=== PATIENT | female | born 1945 | race Caucasian/White ===

== ENCOUNTER 2016-12-03 19:57 | Emergency (ER) | payer MEDICARE, OTHER ==
[2016-12-03 20:13] VITALS: TEMP 98.4; O2SAT 100
[2016-12-03] MEDS ORDERED: LIDOCAINE VIS-MYLANTA 30 ML UD PO ONE (20:13)
[2016-12-03] MEDS ORDERED: FAMOTIDINE 20 MG TAB PO ONE (20:13)
--- NOTE | 2016-12-03 20:46 | RAD ---
EXAM DESCRIPTION: Chest,2 Views CLINICAL HISTORY: 70 years Female substernal epigastric pain COMPARISON: None. FINDINGS: The cardiomediastinal silhouette appears unremarkable. No consolidating infiltrates. No pneumothorax. Lungs appear hyperinflated suggesting COPD pre- Focal area of scarring or atelectasis in the left upper lobe. Some blunting of the left posterior sulcus. Question scarring versus fluid. IMPRESSION: Pulmonary hyperinflation suggesting COPD Some blunting of the left posterior sulcus. Question small amount of fluid versus scarring Electronically signed by: Jasmin Izquierdo 12/03/2016 8:45 PM CDT
--- NOTE | 2016-12-03 20:47 | RAD ---
EXAM DESCRIPTION: Abdomen Flat Upright CLINICAL HISTORY: 70 years Female substernal epigastric pain COMPARISON: None. TECHNIQUE: Single view of the abdomen. FINDINGS: The upper abdomen was not entirely included on the film. No dilated loops of bowel to suggest obstruction. IMPRESSION: No acute plain film abnormality is identified. Electronically signed by: Jasmin Izquierdo 12/03/2016 8:46 PM CDT
--- NOTE | 2016-12-03 21:41 | ED.PDOC ---
History of Present Illness - General Chief Complaint: Blood Pressure Problem Stated Complaint: epigastric burning, HTN Time Seen by Provider: 12/03/16 19:59 Source: patient, family Exam Limitations: no limitations - History of Present Illness Initial Comments: the patient is a 70-year-old female presenting to the emergency room secondary to an epigastric discomfort. The patient has had this discomfort for the last 2 nights. It has occurred after she is eating supper. The patient does have a history of breast cancer. She did not have any chest pain. No shortness of breath. No palpitations or syncope. No near syncope. No headache. The patient has had significant social stresses with her 's health. She is not taking medications for her stomach. She has had about a 20 pound weight loss over the last year. She did not throw up. No diarrhea. No blood in the stools. No fever. The patient is not having anyepigastric pain about time she arrives here. She does admit to significant anxiety. Timing/Duration: 1/2 hour Severity: moderate Improving Factors: nothing Worsening Factors: nothing Associated Symptoms: denies symptoms Allergies/Adverse Reactions: Allergies NO KNOWN ALLERGY Allergy (Verified 12/03/16 20:14) Home Medications: Ambulatory Orders Famotidine 20 mg PO DAILY #30 tab 12/03/16 Sucralfate Tab [Carafate Tab] 1 gm PO QID #120 tab 12/03/16 Review of Systems - Review of Systems Constitutional: States: no symptoms reported EENTM: States: no symptoms reported Respiratory: States: no symptoms reported Cardiology: States: no symptoms reported Gastrointestinal/Abdominal: States: abdominal pain Genitourinary: States: no symptoms reported Musculoskeletal: States: no symptoms reported Skin: States: no symptoms reported Neurological: States: no symptoms reported Endocrine: States: no symptoms reported All other Systems: No Change from Baseline Past Medical History (General) - Patient Medical History Hx Diabetes: No Hx Cancer: Yes - left breast Hx MRSA: No Surgical History: appendectomy, Hysterectomy - Vaccination History Hx Influenza Vaccination: Yes - Triage Comment ED Triage Comment: states feeling better at present Family Medical History - Family History Father Family History: Unknown Physical Exam - Physical Exam General Appearance: Alert, Anxious, No apparent distress Eye Exam: bilateral normal Ears, Nose, Throat: hearing grossly normal, normal ENT inspection, normal pharynx Neck: non-tender, full range of motion, supple, normal inspection Respiratory: chest non-tender, lungs clear, normal breath sounds, no respiratory distress, no accessory muscle use Cardiovascular/Chest: normal peripheral pulses, regular rate, rhythm, no edema Peripheral Pulses: radial,right: 2+, radial,left: 2+, dorsalis pedis,right: 2+, dorsalis pedis,left: 2+ Gastrointestinal/Abdominal: soft, other - mild epigastric discomfort palpation. No pulsatile palpable masses. No rebound or peritoneal signs. 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 Skin Exam: normal color Comments: Vital Signs - 24 hr 12/03/16 12/03/16 12/03/16 20:08 20:42 21:19 Temperature 98.4 F Pulse Rate [ 60 56 L 58 L right] Respiratory 18 18 16 Rate Blood Pressure 158/81 161/63 145/76 [Left Arm] O2 Sat by Pulse 100 Oximetry Progress - Progress Progress: 12/03/16 21:43 the patient is a 70-year-old female presenting due to epigastric pain. This is most likely related to gastritis probably worsened by anxiety. The patient is going to be placed on Pepcid and Carafate for the next month. I do want her to follow up with her primary care doctor, Dr. Hill. She has had weight loss over the last year and this needs to be monitored. Additionally she may yet need something for mild anxiety in the long run. ER warnings were given for any significant worsening. If she has further epigastric discomfort she should try a trial of liquid Maalox. - Results/Orders Results/Orders: 12/03/16 20:12 Telemetry .CONTINUOUS normal sinus rhythm Two-view abdomen shows no evidence of any free air, obstruction or ileus. No acute pathology. Two-view chest x-ray shows chronic changes consistent with COPD. No evidence of pneumonia. No cardiomediastinal widening. 12/03/16 20:15 EKG STAT mild sinus bradycardia. Very mild right axis deviation with a mild right bundle branch block. No acute ST segment changes consistent with ischemia. Normal QT interval. Laboratory Results - last 24 hr 12/03/16 12/03/16 12/03/16 20:20 20:20 20:20 WBC 4.2 L RBC 4.53 Hgb 14.0 Hct 40.7 MCV 89.8 MCH 30.8 MCHC 34.3 RDW 13.4 Plt Count 194 MPV 7.6 Absolute Neuts (auto) 2.40 Absolute Lymphs (auto) 1.10 Absolute Monos (auto) 0.50 Absolute Eos (auto) 0.10 Absolute Basos (auto) 0.00 Neutrophils % 57.8 Lymphocytes % 27.3 Monocytes % 11.1 H Eosinophils % 3.2 Basophils % 0.6 PT 10.7 INR 0.950 PTT (SP) 30.0 D-Dimer, Quantitative < 230 Sodium 139 Potassium 3.8 Chloride 106 Carbon Dioxide 30 Anion Gap 6.8 L BUN 16 Creatinine 0.80 BUN/Creatinine Ratio 20.0 Random Glucose 116 H Serum Osmolality 279.7 Calcium 8.9 Magnesium 1.9 Total Bilirubin 0.6 AST 24 ALT 21 Alkaline Phosphatase 48 Creatine Kinase 119 CK-MB (CK-2) 3.8 CK-MB (CK-2) % Not Reportable Troponin I < 0.02 B-Natriuretic Peptide 42.1 Serum Total Protein 6.3 L Albumin 4.0 Globulin 2.3 Albumin/Globulin Ratio 1.7 Amylase 69 Lipase 46 TSH 2.23 Urine Color Urine Appearance Urine pH Ur Specific [place] Urine Protein Urine Glucose (UA) Urine Ketones Urine Blood Urine Nitrite Urine Bilirubin Urine Urobilinogen Ur Leukocyte Esterase Urine RBC Urine WBC Ur Epithelial Cells Urine Bacteria 12/03/16 21:08 WBC RBC Hgb Hct MCV MCH MCHC RDW Plt Count MPV Absolute Neuts (auto) Absolute Lymphs (auto) Absolute Monos (auto) Absolute Eos (auto) Absolute Basos (auto) Neutrophils % Lymphocytes % Monocytes % Eosinophils % Basophils % PT INR PTT (SP) D-Dimer, Quantitative Sodium Potassium Chloride Carbon Dioxide Anion Gap BUN Creatinine BUN/Creatinine Ratio Random Glucose Serum Osmolality Calcium Magnesium Total Bilirubin AST ALT Alkaline Phosphatase Creatine Kinase CK-MB (CK-2) CK-MB (CK-2) % Troponin I B-Natriuretic Peptide Serum Total Protein Albumin Globulin Albumin/Globulin Ratio Amylase Lipase TSH Urine Color Yellow Urine Appearance Clear Urine pH 5.5 Ur Specific [place] 1.025 Urine Protein Trace Urine Glucose (UA) Negative Urine Ketones Negative Urine Blood Trace-lysed H Urine Nitrite Negative Urine Bilirubin Negative Urine Urobilinogen 0.2 Ur Leukocyte Esterase Trace H Urine RBC 0-1 Urine WBC 1-3 Ur Epithelial Cells 0-1 Urine Bacteria Rare Departure - Departure Clinical Impression: Epigastric pain Disposition: Discharge to Home or Self Care Condition: Fair Departure Forms: ED Discharge - Pt. Copy, Patient Portal Self Enrollment Instructions: DI for Epigastric Pain Diet: bland diet Activity: increase activity as tolerated Referrals: Andrew Hill MD [Primary Care Provider] - 1-2 Weeks Prescriptions: Famotidine 20 mg PO DAILY #30 tab Sucralfate Tab [Carafate Tab] 1 gm PO QID #120 tab Home Medications: Ambulatory Orders Famotidine 20 mg PO DAILY #30 tab 12/03/16 Sucralfate Tab [Carafate Tab] 1 gm PO QID #120 tab 12/03/16 Additional Instructions: the patient is a 70-year-old female presenting due to epigastric pain. This is most likely related to gastritis probably worsened by anxiety. The patient is going to be placed on Pepcid and Carafate for the next month. I do want her to follow up with her primary care doctor, Dr. Hill. She has had weight loss over the last year and this needs to be monitored. Additionally she may yet need something for mild anxiety in the long run. ER warnings were given for any significant worsening. If she has further epigastric discomfort she should try a trial of liquid Maalox.
[2016-12-03 21:51] VITALS: BP 142/73
== END 2016-12-03 21:52 | disposition home or self-care (01) ==
LOC: ER 19:57
DX: R10.13 Epigastric pain (principal); F41.9 Anxiety disorder, unspecified; Z85.3 Personal history of malignant neoplasm of breast

== ENCOUNTER → 2016-12-13 | Outpatient (CLI) | payer MEDICARE, OTHER ==
--- NOTE | 2016-12-14 10:43 | CT ---
EXAM DESCRIPTION: Abdoment/Pelvis w/o Contrast CLINICAL HISTORY: GERD COMPARISON: February 27, 2006 TECHNIQUE: CT of the abdomen and Pelvis was performed without IV contrast. This exam was performed according to our departmental dose-optimization program, which includes automated exposure control, adjustment of the mA and/or kV according to patient size and/or use of iterative reconstruction technique. FINDINGS: The lung bases are unremarkable. No hiatal hernia or gastric wall thickening. The gallbladder is not seen and is either collapsed or surgically absent. No calcified gallstone is identified. The liver, spleen, pancreas, adrenals and kidneys are unremarkable for noncontrast technique. No dilated small bowel loops. Moderate amount of colonic stool and gas without pericolonic inflammation. No bladder wall thickening. The uterus and right ovary are not identified, correlate with surgical history. There is a 6.8 cm left adnexal cyst which may be of left ovarian origin. This is new or increased in size from February, when a 3.5 cm left adnexal cyst was noted. No concerning bone lesion. IMPRESSION: No hiatal hernia or other abnormality to explain provided history of gastroesophageal reflux disease. 6.8 cm left adnexal cyst, suboptimally evaluated due to lack of IV contrast on this exam. This is new or increased in size from February, as detailed above. Nonemergent but prompt ultrasound is recommended for further evaluation. Electronically signed by: Trav Ansari MD 12/14/2016 10:41 AM CDT
== END ==
LOC: CT 09:46
PROVIDERS: ATTEND Family Medicine
DX: K21.9 Gastro-esophageal reflux disease without esophagitis (principal)

== ENCOUNTER → 2016-12-22 | Outpatient (CLI) | payer MEDICARE, OTHER ==
--- NOTE | 2016-12-24 19:58 | US ---
EXAM DESCRIPTION: Pelvic,Non-OB CLINICAL HISTORY: ABN CT. Hysterectomy. Left adnexal cystic mass and pelvic mesentery stranding. COMPARISON: CT scan abdomen and pelvis 12/13/2016. TECHNIQUE: Transcutaneous scanning through the urine filled bladder. Endovaginal scanning. Two-dimensional and Doppler modes. FINDINGS: The uterus is surgically absent. Cul-de-sac contains no fluid. Right ovary measures 2.1 x 0.8 x 0.9 cm. Decreased Vascularity Doppler. No follicles or cysts. No adnexal mass or free fluid. Left ovary 5.8 x 7.1 x 5.1 x 4.5 cm. Decreased Vascularity Doppler. Mostly cystic with wall thickening. Posterior acoustic enhancement. No adnexal mass or free fluid. IMPRESSION: Large mostly cystic structure in the left adnexa presumed to be the left ovary.. Nonvascular. Wall thickening with posterior acoustic enhancement. Probably benign hemorrhagic cyst. Consider MRI pelvis with gadolinium IV contrast and surgical evaluation. Please see [facility] Best Practice guidelines for follow-up of benign ovarian cysts.* Small right ovary. Recommendations for f/u of ovarian hemorrhagic cysts and corpus luteum cysts (1): Corpus luteum cyst, w/o : <=3 cm No follow-up imaging recommended >3 cm US f/u 6-12 wks. If resolved or smaller, no further f/u. If stable/larger, continue f/u with US or consider MR w/IVC Hemorrhagic cyst, Pre-menopause: <=5 cm No follow-up imaging recommended >5 cm US f/u 6-12 weeks. If not resolved, US f/u annually. Hemorrhagic cyst, Early Post-menopause (1-5 years from last menstrual period): Any size: US f/u 6-12 weeks. If not resolved, US f/u annually. Hemorrhagic cyst, Late Post-menopause (>5 years from last menstrual period): Any size: Consider surgical evaluation (1) Recommendations based upon the 2010 SRU Consensus Conference Statement on the Management of Asymptomatic Ovarian and Other Adnexal Cysts Imaged at US: Radiology. 2009;256(3):943-54 Electronically signed by: Jason Gomez MD 12/24/2016 7:57 PM DOCTOR OF MEDICINE Workstation: [id number]
== END | disposition home or self-care (01) ==
LOC: US 09:46
PROVIDERS: ATTEND Family Medicine
DX: R93.8 Abnormal findings on diagnostic imaging of other specified body structures (principal)

== ENCOUNTER 2016-12-28 18:26 | Observation (INO) | payer MEDICARE, OTHER ==
--- NOTE | 2016-12-28 18:50 | ED.PDOC ---
History of Present Illness - General Chief Complaint: Chest Pain/OK Stated Complaint: CHEST PAIN Time Seen by Provider: 12/28/16 18:49 Source: patient Exam Limitations: no limitations - History of Present Illness Initial Comments: Roz Valdes 71 y/o female stated that she had chest tightness across her chest while doing yard work 1-2 hours ago no radiation no diaphoresis no N/V no SOB.stated went away after 30 minutes after going back inside her house but symptoms recurred so she finally decided to come to er.Had recent EGD for Ge reflux sx and has appointment with cardio the end of this month,Took one tablet regular aspirin before coming home. Timing/Duration: 1-3 hours Severity/Quality: pressure Location: central Chest Pain Radiation: no radiation Activities at Onset: activity Prior Chest Pain/Cardiac Workup: other - has scheduled appt. with cardio Worsening Factors: nothing Nitro Today/Relief: 0.4 mg x 1, provided by ED Aspirin Treatment Today: provided at home Associated Symptoms: denies symptoms Allergies/Adverse Reactions: Allergies NO KNOWN ALLERGY Allergy (Verified 12/03/16 20:14) Home Medications: Ambulatory Orders Famotidine 20 mg PO DAILY #30 tab 12/03/16 Sucralfate Tab [Carafate Tab] 1 gm PO QID #120 tab 12/03/16 Review of Systems - Review of Systems Constitutional: States: no symptoms reported EENTM: States: no symptoms reported Respiratory: States: see HPI Cardiology: States: see HPI Gastrointestinal/Abdominal: States: see HPI Genitourinary: States: no symptoms reported Skin: States: no symptoms reported Neurological: States: no symptoms reported Past Medical History (General) - Patient Medical History Hx Seizures: No Hx Stroke: No Hx Asthma: No Hx Cardiac Disorders: No Hx Thyroid Disease: No Hx Diabetes: No Hx Gastroesophageal Reflux: Yes Hx Cancer: Yes - left breast Hx MRSA: No Surgical History: appendectomy, other - lumpectomy left breast,hysterectomy - Vaccination History Hx Influenza Vaccination: Yes - Social History Hx Physical Abuse: No Hx Emotional Abuse: No Hx Suspected Abuse: No - Activities of Daily Living Grooming Ability: Independent Eating (Feeding) Ability: Independent Toileting Ability: Independent Family Medical History - Family History Father Family History: Unknown Hx Family Stroke: Yes - dad Hx Family Diabetes: Yes - mom Physical Exam - Physical Exam General Appearance: Alert, Anxious, No apparent distress Eyes, Ears, Nose, Throat Exam: PERRL/EOMI, normal ENT inspection Neck: non-tender, full range of motion, supple, normal inspection Respiratory: chest non-tender, lungs clear, normal breath sounds Cardiovascular/Chest: normal peripheral pulses, regular rate, rhythm, no murmur Peripheral Pulses: radial,right: 2+, radial,left: 2+ Gastrointestinal/Abdominal: normal bowel sounds, non tender, soft, no organomegaly Extremity: no pedal edema, no calf tenderness Neurologic: alert, normal mood/affect, oriented x 3 Skin Exam: normal color, warm/dry Lymphatic: no adenopathy Progress - Progress Progress: 12/28/16 19:44 Last Vital Signs Temp 97.4 F L 12/28/16 18:30 Pulse 68 12/28/16 18:30 Resp 16 12/28/16 18:30 BP 172/68 12/28/16 18:30 Pulse Ox 100 12/28/16 18:30 12/28/16 22:38 Last Vital Signs Temp 97.4 F L 12/28/16 18:30 Pulse 53 L 12/28/16 22:15 Resp 16 12/28/16 22:15 BP 135/59 12/28/16 22:15 Pulse Ox 97 12/28/16 22:15 - Results/Orders Results/Orders: Laboratory Tests 12/28/16 12/28/16 12/28/16 18:25 18:25 19:20 WBC 5.9 RBC 4.78 Hgb 14.6 Hct 43.2 MCV 90.4 MCH 30.5 MCHC 33.7 RDW 13.2 Plt Count 213 MPV 8.2 Absolute Neuts (auto) 4.30 Absolute Lymphs (auto) 1.10 Absolute Monos (auto) 0.40 Absolute Eos (auto) 0.10 Absolute Basos (auto) 0.00 Neutrophils % 72.5 Lymphocytes % 18.1 L Monocytes % 7.5 Eosinophils % 1.1 Basophils % 0.8 PT 10.7 INR 0.950 PTT (SP) 29.3 D-Dimer, Quantitative < 200 Sodium 139 Potassium 3.4 L Chloride 103 Carbon Dioxide 29 Anion Gap 10.4 L BUN 12 Creatinine 0.73 BUN/Creatinine Ratio 16.4 Random Glucose 91 Serum Osmolality 276.9 Calcium 9.3 Magnesium 1.9 Total Bilirubin 0.7 Direct Bilirubin 0.1 Indirect Bilirubin 0.6 AST 27 ALT 19 Alkaline Phosphatase 53 Creatine Kinase 124 CK-MB (CK-2) 4.0 CK-MB (CK-2) % Not Reportable Troponin I < 0.02 B-Natriuretic Peptide 46.0 Serum Total Protein 6.9 Albumin 4.4 Urine Color Yellow Urine Appearance Clear Urine pH 7.0 Ur Specific [place] 1.015 Urine Protein Negative Urine Glucose (UA) Negative Urine Ketones Negative Urine Blood Negative Urine Nitrite Negative Urine Bilirubin Negative Urine Urobilinogen 0.2 Ur Leukocyte Esterase Trace H Urine RBC 0 Urine WBC 1-3 Ur Epithelial Cells 0-1 Urine Bacteria Rare 12/28/16 21:40 WBC RBC Hgb Hct MCV MCH MCHC RDW Plt Count MPV Absolute Neuts (auto) Absolute Lymphs (auto) Absolute Monos (auto) Absolute Eos (auto) Absolute Basos (auto) Neutrophils % Lymphocytes % Monocytes % Eosinophils % Basophils % PT INR PTT (SP) D-Dimer, Quantitative Sodium Potassium Chloride Carbon Dioxide Anion Gap BUN Creatinine BUN/Creatinine Ratio Random Glucose Serum Osmolality Calcium Magnesium Total Bilirubin Direct Bilirubin Indirect Bilirubin AST ALT Alkaline Phosphatase Creatine Kinase CK-MB (CK-2) CK-MB (CK-2) % Troponin I < 0.02 B-Natriuretic Peptide Serum Total Protein Albumin Urine Color Urine Appearance Urine pH Ur Specific [place] Urine Protein Urine Glucose (UA) Urine Ketones Urine Blood Urine Nitrite Urine Bilirubin Urine Urobilinogen Ur Leukocyte Esterase Urine RBC Urine WBC Ur Epithelial Cells Urine Bacteria - EKG/XRAY/CT EKG: Sinus Comments: heart rate 67 ;IRBBB XRAY: chest - no acute cardiopulmonary disease Departure - Departure Clinical Impression: Chest pain Qualifiers: Chest pain type: unspecified Qualified Code(s): R07.9 - Chest pain, unspecified Time of Disposition: 22:48 Disposition: Admit Patient Condition: Fair Departure Forms: Patient Portal Self Enrollment Referrals: Andrew Hill MD [Primary Care Provider] - 1-2 Weeks Home Medications: Ambulatory Orders Famotidine 20 mg PO DAILY #30 tab 12/03/16 Sucralfate Tab [Carafate Tab] 1 gm PO QID #120 tab 12/03/16 Decision To Admit - Decistion To Admit Decision to Admit Reason: Admit from ER Decision to Admit Date: 12/28/16 - D/W Dr. Harris-Hospitalist Decision to Admit Time: 22:48
[2016-12-28] MEDS ORDERED: NITROGLYCERIN 0.4 MG 25 EA TAB SL ONE ×2 (18:57→18:58)
[2016-12-28] MEDS ORDERED: ACETAMINOPHEN 325 MG TAB PO ONE (19:06)
--- NOTE | 2016-12-28 19:25 | RAD ---
EXAM DESCRIPTION: Chest,1 View CLINICAL HISTORY: pain COMPARISON: None FINDINGS: Cardiac silhouette is within normal limits. EKG leads project over the chest. Skin folds project over the chest bilaterally. There is no focal parenchymal or pleural disease. There is no acute osseous process visualized. IMPRESSION: No evidence of acute cardiopulmonary disease. Electronically signed by: Izaiah Barnett MD 12/28/2016 7:24 PM SENIOR NETWORK ARCHITECT
[2016-12-28] MEDS ORDERED: NITROGLYCERIN 0.4 MG 25 EA TAB SL PRN (23:01)
[2016-12-28] MEDS ORDERED: ACETAMINOPHEN 325 MG TAB PO PRN (23:01)
[2016-12-28] MEDS ORDERED: SODIUM CHLORIDE 0.9% (FLUSH) 10 ML SYG IV PRN (23:01)
[2016-12-28] MEDS ORDERED: MORPHINE SULFATE INJ 10 MG/ML VIAL IV PRN (23:01)
[2016-12-28] MEDS ORDERED: IV SET AND CAP CHANGE INJ INJ SCH (23:30)
[2016-12-29] MEDS ORDERED: SUCRALFATE 1 GM TAB PO ONE (00:24)
[2016-12-29] MEDS: SUCRALFATE 1 GM/10 ML 1 GM UD PO SCH ×3 (00:26→10:13)
[2016-12-29] MEDS ORDERED: OMEPRAZOLE CAP 20 MG CAP PO SCH (06:30)
[2016-12-29] MEDS ORDERED: POTASSIUM CHLORIDE 10 MEQ TAB PO SCH (07:30)
[2016-12-29] MEDS ORDERED: SODIUM CHLORIDE 0.9% (FLUSH) 10 ML SYG IV SCH (09:00)
[2016-12-29] MEDS ORDERED: ASPIRIN (CHEWABLE) 81 MG TAB PO SCH (09:00)
[2016-12-29 10:47] VITALS: BP 127/66; TEMP 97.8; O2SAT 98
--- NOTE | 2016-12-29 19:05 | SSS ---
SUPERVISING PHYSICIAN: Richie Contreras M.D. CHIEF COMPLAINT: Chest pain. HISTORY OF PRESENT ILLNESS: Roz is a 71 year-old female patient that presented to the Emergency Department on 12/28/16 after she started having some chest tightness that was across her chest while she was exerting herself in the yard for 1 to 2 hours. She denied any diaphoresis, radiation, nausea, vomiting or any shortness of breath. She noted that the pain went away with rest after 30 minutes but symptoms reoccurred after which point she decided to go to the E. R. for further evaluation. She did just have a recent EGD on 12/27 due to epigastric abdominal pain and recurrent chest pain. Per that report and review of medical records showed the esophagus, stomach and duodenum to be normal in appearance. She was started on a PPI. In the Emergency Department, she was given 1 Nitro which she notes pain decreased to zero at that point. Initial laboratory studies in the Emergency Department showed that her cardiac enzymes were within normal limits with troponin less than 0.02. A repeat of the cardiac enzymes at 3 hours again showed troponin was unchanged at less than 0.02. She was without any chest pains, however given the patient's past history and recurrent chest pains, Dr. Keen requested the patient be placed in Observation for further telemetry and repeat of cardiac enzymes in the morning. She had a chest x-ray prior to admission as well and two view chest x-ray per radiology interpretation showed no evidence of acute cardiopulmonary disease. The patient was then admitted to the Medical/Surgical floor in stable condition. PAST MEDICAL HISTORY: 1. Breast cancer diagnosed in April 2001 treated with mastectomy. 2. Gastroesophageal reflux disease. PAST SURGICAL HISTORY: 1. Hysterectomy. 2. Mastectomy on the left in 04/2001. 3. Wedge resection of an ovary in 1969. HOME MEDICATIONS: 1. Famotidine 20 mg daily. 2. Carafate 1 gram q.i.d. ALLERGIES: NO KNOWN DRUG ALLERGIES. FAMILY HISTORY: Father is at age 69 secondary to myocardial infarction. Mother at age 46 due to suicide. 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 She is . Lives in [place], [place]. She does have a history of smoking 2 packs a day for 5 years, but quit in 1971. She drinks alcohol on a social basis only. Denies any illicit drug use. REVIEW OF SYSTEMS: CONSTITUTIONAL: Denies any fever or chills, but notes that she has had some unintentional weight loss over the last year which is being followed by Dr. Hill. HEENT: Denies any headaches, vision changes, ear aches, sore throat. RESPIRATORY: As noted in History of Present Illness. CARDIOVASCULAR: As noted in history of present illness. GASTROINTESTINAL: Denies any abdominal pain, nausea, vomiting or diarrhea. GENITOURINARY: Denies any dysuria, hematuria or other urinary symptoms. NEUROLOGIC: Denies any syncopal episodes, neurological changes, vision changes. PHYSICAL EXAMINATION: VITAL SIGNS: Temperature 97.3, pulse 63, blood pressure 160/77, respirations 18 , satting 97% on admission to the Medical/Surgical floor. Weight was 49.8 kg. On discharge, blood pressure was well controlled at 127/66, heart rate 65, satting 98% on room air with temperature 97.8. GENERAL: The patient appears to be in no acute distress. On examination on the Medical/Surgical floor, she was well-hydrated, well-nourished, alert. HEENT: Tympanic membranes are clear bilaterally. Oropharynx is pink and moist without any lesions. There was no jugular venous distention. NECK: Supple, non-tender. Full range of motion. CHEST: Lungs are clear to auscultation bilaterally without any rhonchi, wheezing or rales. CARDIOVASCULAR: Regular rate and rhythm without appreciable murmurs, gallops, or rubs. ABDOMEN: Soft, non-tender. Positive bowel sounds. EXTREMITIES: There is no clubbing, cyanosis or edema. NEUROLOGIC: She is alert and oriented times three. Facial features were symmetrical. Extraocular movements are within normal limits. There is no notable nystagmus. Cranial nerves II-XII are grossly intact. LABORATORY: CBC on admission was within normal limits with white count 5,900. Coagulation studies showed a normal PT, PTT and a D-dimer. Chemistries showed mild hypokalemia on admission at 3.4, at discharge was 3.5. Electrolytes were within normal limits. BUN 13, creatinine 0.82 at discharge. Liver functions on admission showed to be within normal limits. Initial troponin was less than 0.02, again at 6 hours was less than 0.02, and then in the morning prior to discharge was continuing to show no change. Her lipid panel profile showed triglycerides of 46, cholesterol 197, LDL was 85, HDL was 98. Urinalysis just showed a trace of leukocyte esterase on dipstick, otherwise within normal limits. RADIOLOGY: Chest x-ray two view chest showed no evidence of acute cardiopulmonary disease. EKG: Initial 12 lead in the Emergency Department showed an early right bundle branch block with sinus rhythm at 67. No ST or T wave changes were noted acutely. EKGs were unchanged through admission. ASSESSMENT: 1. Chest pain without any evidence of acute myocardial infarction with EKG showing no ST or T wave changes and cardiac enzymes remained within normal limits times three. 2. Questionable acute anxiety attack resulting in chest pains. 3. Gastroesophageal reflux disease with possible esophageal spasm status post EGD within the last 3 days. 4. History of breast cancer diagnosed and treated in 2001. HOSPITAL COURSE: Ms. Valdes was admitted from the E. . as noted in History of Present Illness for chest pains prior to admission to the Emergency Department. She was pain free after 1 Nitro. She remained pain free. Had no recurrence of chest pains. EKG was unchanged and cardiac enzymes and serial consecutive times three showed to be all within normal limits at less than 0.02. It was felt that the patient was clinically stable and was showing no evidence of acute myocardial infarction, therefore was able to be discharged to have close clinical followup. PLAN: Ms. Valdes will have close clinical followup scheduled with Dr. Hill as well as Dr. Loyola. She will continue with an aspirin. She was started on PPI. This will be continued on discharge. She was encouraged to return to the E. R. should she have any return of her symptoms. She was given new prescriptions to include: 1. Nitroglycerin 0.4 mg every 5 minutes as needed for chest pain. 2. Aspirin 81 mg daily. 3. Carafate 1 gram a.c. and h.s. 4. Protonix 20 mg daily. Exercise and increase activity as tolerated. No strenuous exercise until cleared by Dr. Loyola. Diet is low fat, low cholesterol diet as tolerated. Condition at discharge was stable and improved. #[id number] [facility]
== END 2016-12-29 12:46 | disposition home or self-care (01) ==
LOC: ER 18:26 → MS 23:29
PROVIDERS: ADMIT Emergency Medicine; ATTEND Nurse Practitioner Family
DX: R07.89 Other chest pain (principal); I45.10 Unspecified right bundle-branch block; K21.9 Gastro-esophageal reflux disease without esophagitis; Z79.899 Other long term (current) drug therapy; Z85.3 Personal history of malignant neoplasm of breast; Z90.12 Acquired absence of left breast and nipple; Z82.49 Family history of ischemic heart disease and other diseases of the circulatory system; Z87.891 Personal history of nicotine dependence
CPT/HCPCS: 36415 ×3; 71010; 80048 ×2; 80061; 80076; 81001; 82550 ×2; 82553 ×2; 83880; 84484 ×3; 85025; 85379; 85610; 85730; 93005 ×3; 94760 ×2; 99284; G0378

== ENCOUNTER → 2017-12-10 | Outpatient (CLI) | payer MEDICARE, OTHER | LOC: GMAE 12:58 | PROVIDERS: ATTEND Family Medicine | DX: E55.9 Vitamin D deficiency, unspecified (principal) ==

== ENCOUNTER → 2018-06-18 | Outpatient (CLI) | payer MEDICARE, OTHER | LOC: GMAE 11:20 | PROVIDERS: ATTEND Family Medicine | DX: I10 Essential (primary) hypertension (principal) ==

== ENCOUNTER → 2018-06-26 | Outpatient (CLI) | payer MEDICARE, OTHER ==
--- NOTE | 2018-06-27 17:43 | MAM ---
EXAM DESCRIPTION: 3D Screening BILATERAL : Digital Mammography. CLINICAL HISTORY: 72 years Female SCREENING . Cancer left breast with lumpectomy and radiation in 2001. No family history of breast cancer. No childbirth. Postmenopausal 29 years. HRT 5 or more years ago.. Lifetime risk of developing breast cancer (Tyrer-Cuzick model)(%): Not calculated due to personal history of breast cancer COMPARISON: Baseline study at this facility.. No prior reports available. TECHNIQUE: Bilateral CC and MLO projection full-field images, digital tomosynthesis mammographic technique. Bilateral digital 2-D full-field MLO images. CAD not available for tomosynthesis or 2-D images. FINDINGS: The breast parenchymal density pattern is: Heterogeneously dense breast tissue, which may obscure small masses. No skin thickening or nipple retraction. Architectural distortion in the upper outer quadrant of the left breast posterior third with minimal adjacent skin thickening. Multiple surgical and radiation site markers are visualized with wire marker placed on this examination of the skin scar. The parenchymal distortion is intermittently dense and radiolucent. Extremely dense retroareolar tissue on the right breast. Asymmetrically increased in density compared to the retroareolar left breast. Also uniformly dense posterior breast tissue IMPRESSION: BI-RADS CATEGORY: 0 - INCOMPLETE- Need additional imaging evaluation. FOLLOW-UP: Recall for additional imaging: Bilateral full-field orthogonal tomosynthesis in the LM projection. Bilateral targeted ultrasound to include the architectural distortion in the left breast in the dense retroareolar tissue in the right breast.. Written communication concerning the IMPRESSION and Follow-up, will be mailed to the patient and referring health care provider. Electronically signed by: Jason Gomez MD 06/27/2018 5:42 PM CDT
== END ==
LOC: MAMMO 12:40
PROVIDERS: ATTEND Family Medicine
DX: Z12.31 Encounter for screening mammogram for malignant neoplasm of breast (principal)

== ENCOUNTER → 2019-01-02 | Outpatient (CLI) | payer MEDICARE, OTHER | LOC: GMAE 01:11 | PROVIDERS: ATTEND Family Medicine | DX: E55.9 Vitamin D deficiency, unspecified (principal); M81.0 Age-related osteoporosis without current pathological fracture ==